=== PATIENT | female | born 2000 | race African-American/Black ===

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

== ENCOUNTER 2022-04-25 11:43 | Observation (INO) ==
[2022-04-25] MEDS ORDERED: 0.9 % Sodium Chloride 1,000 ML IVC ONE (12:01)
[2022-04-25 13:21] LABS: Basophils % 0.6 %; Eosinophils # 0.2 K/mcL (0.0-0.6); Eosinophils % 2.9 %; Hematocrit 39.8 % (35.3-44.9); Hemoglobin 12.9 g/dL (11.5-15.4); Immature Granulocytes % 0.4 % (0-4); Lymphocytes # 1.9 K/mcL (0.6-4.6); Lymphocytes % 25.6 %; Mean Corpuscular HGB Conc 32.4 g/dL (31.6-35.5); Mean Corpuscular Hemoglobin 28.6 pg (28.0-33.3); Mean Corpuscular Volume 88.2 fL (83.0-100.0); Mean Platelet Volume 8.8 fL (9.4-12.4); Monocytes # 0.6 K/mcL (0.0-1.3); Monocytes % 7.7 %; Neutrophils # 4.6 K/mcL (1.6-8.9); Platelet Count 325 K/mcL (140-400); Red Blood Count 4.51 M/mcL (3.82-4.97); Red Cell Distribution Width 15.2 % (11.5-14.5); Segmented Neutrophils % 62.8 %; White Blood Count 7.3 K/mcL (4.3-11.1)
[2022-04-25 13:38] LABS: Alanine Aminotransferase 120 Units/L (7-52); Albumin 4.2 g/dL (3.5-5.7); Albumin/Globulin Ratio 1.3 (1.1-2.2); Alkaline Phosphatase 67 Units/L (34-104); Aspartate Amino Transferase 46 Units/L (13-39); BUN/Creatinine Ratio 18 (6-26); Bilirubin,Total 1.4 mg/dL (0.3-1.0); Blood Urea Nitrogen 12 mg/dL (6-20); Calcium 9.4 mg/dL (8.6-10.3); Carbon Dioxide 28 mEq/L (23-29); Chloride 103 mEq/L (98-107); Creatine Kinase 216 Units/L (30-223); Ethanol < 10 mg/dL (Less than 10); Globulin 3.2 g/dL (2.4-3.5); Glucose 76 mg/dL (70-105); Lipase 16 Units/L (11-82); Magnesium 1.8 mg/dL (1.6-2.6); Osmolality,Calculated 285 (280-300); Sodium 138 mEq/L (136-145); Total Protein 7.4 g/dL (6.4-8.9)
[2022-04-25 14:43] LABS: Bacteria,Urine Few per hpf (None-Few); Bilirubin,Urine Negative (Negative); Blood,Urine Negative (Negative); Clarity,Urine Turbid (Clear); Color,Urine Yellow (Yellow); Glucose,Urine (UA) Normal (Normal); Ketones,Urine Negative (Negative); Leukocyte Esterase,Urine Large (Negative); Mucus,Urine Few per lpf (None-Few); Nitrite,Urine Negative (Negative); Protein,Urine Trace mg/dL (Neg-Trace); Specific Gravity,Urine 1.022 (1.010-1.025); Squamous Epithelial Cell,Urine Moderate per hpf (None-Few); WBC,Urine 15-30 per hpf (0-3)
[2022-04-25] MEDS ORDERED: CefTRIAXone 1,000 MG VIAL IM ONE (15:03)
[2022-04-25] MEDS ORDERED: levETIRAcetam 250 MG TABLET PO ONE (15:34)
[2022-04-25] MEDS ORDERED: Lidocaine -MPF 1% 2 ML VIAL ONE (16:06)
[2022-04-25] MEDS ORDERED: *HR* LORazepam 2 MG/ML VIAL ONE (16:17)
[2022-04-25] MEDS ORDERED: *HR* LORazepam 2 MG/ML VIAL IVP ONE (16:19)
[2022-04-25 16:54] LABS: Amphetamine Screen,Urine Positive ng/mL (Cutoff=1000); Barbiturate Screen,Urine Negative ng/mL (Cutoff=200); Benzodiazepines Screen,Urine Negative ng/mL (Cutoff=200); Cannabinoid Screen,Urine Positive ng/mL (Cutoff = 50); Cocaine Screen,Urine Negative ng/mL (Cutoff= 300); Opiate Screen,Urine Negative ng/mL (Cutoff=300); Phencyclidine Screen,Urine Negative ng/mL (Cutoff=25)
[2022-04-25] MEDS ORDERED: cefTRIAXone 1,000 MG in Water for inj. (sterile) 10 ML IVP ONE (17:00)
[2022-04-25] MEDS ORDERED: Ondansetron 4 MG/2 ML VIAL IVP PRN (21:04)
[2022-04-25] MEDS ORDERED: Acetaminophen 325 MG TABLET PO PRN (21:04)
[2022-04-25] MEDS ORDERED: Naloxone 0.4 MG/ML INJ IVP PRN (21:04)
[2022-04-25] MEDS ORDERED: *HR* LORazepam 2 MG/ML VIAL IVP PRN (21:34)
[2022-04-26 07:00] LABS: Basophils % 0.6 %; Eosinophils # 0.3 K/mcL (0.0-0.6); Eosinophils % 3.5 %; Hematocrit 39.4 % (35.3-44.9); Hemoglobin 12.5 g/dL (11.5-15.4); Immature Granulocytes % 0.3 % (0-4); Lymphocytes # 2.1 K/mcL (0.6-4.6); Lymphocytes % 30.2 %; Mean Corpuscular HGB Conc 31.7 g/dL (31.6-35.5); Mean Corpuscular Hemoglobin 28.5 pg (28.0-33.3); Mean Platelet Volume 8.9 fL (9.4-12.4); Monocytes # 0.6 K/mcL (0.0-1.3); Monocytes % 7.8 %; Neutrophils # 4.1 K/mcL (1.6-8.9); Platelet Count 287 K/mcL (140-400); Red Blood Count 4.38 M/mcL (3.82-4.97); Red Cell Distribution Width 15.1 % (11.5-14.5); Segmented Neutrophils % 57.6 %; White Blood Count 7.1 K/mcL (4.3-11.1)
[2022-04-26 07:22] LABS: Alanine Aminotransferase 95 Units/L (7-52); Albumin 3.7 g/dL (3.5-5.7); Albumin/Globulin Ratio 1.2 (1.1-2.2); Alkaline Phosphatase 62 Units/L (34-104); Aspartate Amino Transferase 49 Units/L (13-39); BUN/Creatinine Ratio 21 (6-26); Bilirubin,Direct 0.5 mg/dL (0.0-0.2); Bilirubin,Indirect 1.1 mg/dL (0.0-1.0); Bilirubin,Total 1.6 mg/dL (0.3-1.0); Blood Urea Nitrogen 12 mg/dL (6-20); Calcium 8.8 mg/dL (8.6-10.3); Carbon Dioxide 22 mEq/L (23-29); Chloride 104 mEq/L (98-107); Glucose 63 mg/dL (70-105); Magnesium 1.6 mg/dL (1.6-2.6); Osmolality,Calculated 280 (280-300); Potassium 3.9 mEq/L (3.5-5.1); Sodium 136 mEq/L (136-145); Total Protein 6.7 g/dL (6.4-8.9)
[2022-04-26 07:32] LABS: Thyroid Stimulating Hormone 1.379 mcIU/mL (0.340-5.600)
[2022-04-26] MEDS: cefTRIAXone 1,000 MG in 0.9 % Sodium Chloride Mini Bag 100 ML IVPB SCH (10:26)
[2022-04-26 12:33] LABS: Hepatitis B Surface Antigen Nonreactive (Nonreactive)
[2022-04-26 13:02] LABS: HIV-1&2 Antibody & p24 Ag Nonreactive (Nonreactive)
[2022-04-26 13:05] LABS: Hepatitis B Core IgM Nonreactive (Nonreactive)
[2022-04-26 13:06] LABS: Hepatitis A Antibody IgM Nonreactive (Nonreactive)
[2022-04-27 06:40] VITALS: TEMP 97.6
[2022-04-27] MEDS: cefTRIAXone 1,000 MG in 0.9 % Sodium Chloride Mini Bag 100 ML IVPB SCH (08:40)
[2022-04-27 10:47] VITALS: BP 105/69; PULSE 79; O2SAT 98
[2022-04-27 12:55] LABS: Hepatitis C Virus Antibody Reactive (Nonreactive)
[2022-04-27] MEDS ORDERED: levETIRAcetam 250 MG TABLET PO SCH (18:00)
== END 2022-04-27 15:07 | disposition home or self-care (01) ==
LOC: EMEROOARM 11:43 → 3BNU 11:43
PROVIDERS: ADMIT Internal Medicine; ATTEND Internal Medicine